=== PATIENT | male | born 1990 | race Caucasian/White ===

== ENCOUNTER 2022-07-31 02:47 | Inpatient (IN) | payer MEDICAID, OTHER ==
[2022-07-31] MEDS ORDERED: ZIPRASIDONE 20 MG VIAL IM STA (05:38)
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
[2022-07-31] MEDS ORDERED: diphenhydrAMINE 50 MG/ML 1 ML VIAL IVP STA (05:42)
[2022-07-31] MEDS ORDERED: LORazepam 2 MG/ML INJ IM STA ×2 (05:42→06:38)
[2022-07-31] MEDS ORDERED: HALOPERIDOL LACTATE 5 MG/ML 1 ML VIAL IM STA (05:43)
[2022-07-31] MEDS ORDERED: IBUPROFEN 600 MG TAB PO PRN (06:19)
[2022-07-31] MEDS ORDERED: ACETAMINOPHEN TAB 325 MG TAB PO PRN (06:19)
[2022-07-31] MEDS ORDERED: LORazepam 1 MG TAB PO PRN (06:19)
[2022-07-31] MEDS ORDERED: MAG HYDROX/AL HYDROX/SIMETH 30 ML CUP PO PRN (06:19)
[2022-07-31] MEDS ORDERED: LORazepam 2 MG/ML INJ IM PRN (06:19)
[2022-07-31] MEDS ORDERED: MAGNESIUM HYDROXIDE 2,400 MG/30 ML CUP PO PRN (06:19)
[2022-07-31] MEDS ORDERED: traZODone HCL 50 MG TAB PO PRN (06:19)
[2022-07-31] MEDS ORDERED: diphenhydrAMINE 25 MG CAP PO PRN (06:19)
[2022-07-31] MEDS ORDERED: diphenhydrAMINE 50 MG/ML 1 ML VIAL IM PRN (06:25)
[2022-07-31] MEDS ORDERED: chlorproMAZINE 25 MG TAB PO PRN (06:26)
[2022-07-31] MEDS ORDERED: chlorproMAZINE 25 MG/ML 2 ML AMP IM PRN (06:26)
[2022-07-31] MEDS ORDERED: NICOTINE 21MG/24HR PATCH TRANSDERM STA (06:39)
[2022-07-31 06:50] LABS: Appearance,Urine Clear (Clear); Bacteria,Urine Rare /hpf; Bilirubin,Urine Negative (Negative); Blood,Urine Negative (Negative); Color,Urine Yellow; Glucose,Urine (UA) Negative (Negative); Hyaline Casts,Urine 13 /lpf (0-2); Ketones,Urine 2+ (Negative); Leukocyte Esterase,Urine Negative (Negative); Mucus,Urine Many /hpf; Nitrite,Urine Negative (Negative); PH, Urine 5.5 (5.0-8.0); Protein,Urine 1+ (Negative); RBC,Urine 1 /hpf (0-5); Specific Gravity,Urine 1.032 (1.001-1.035); Urobilinogen,Urine <2.0 mg/dL (<2.0); WBC,Urine 1 /hpf (0-5)
[2022-07-31 06:58] LABS: Amphetamine Screen,Urine Detected (NotDetected); Barbiturate Screen,Urine Not Detected (NotDetected); Benzodiazepines Screen,Urine Not Detected (NotDetected); Cocaine Screen,Urine Not Detected (NotDetected); Methadone Screen, Urine Not Detected (NotDetected); Opiate Screen,Urine Not Detected (NotDetected); Oxycodone Screen, Urine Not Detected (NotDetected); Phencyclidine Screen,Urine Not Detected (NotDetected); Tricyclic Antidepressant,Urine Not Detected (NotDetected); Urn Cannabinoid Scrn Detected (NotDetected)
[2022-07-31] MEDS: NICOTINE 14MG/24HR PATCH TRANSDERM SCH (19:07)
[2022-08-01 06:10] LABS: Basophils % (A) 1 %; Eosinophils # (A) 0.2 k/uL (0-0.7); Eosinophils % (A) 3 %; HCT 44.2 % (39.0-53.0); HGB 14.9 gm/dL (13.0-17.5); Lymphocytes # (A) 2.2 k/uL (1.0-4.8); Lymphocytes % (A) 32 %; MCH 31.6 pg (25.0-35.0); MCHC 33.8 g/dL (31.0-37.0); MCV 93.8 fL (80.0-100.0); Mean Platelet Volume 7.5; Monocytes # (A) 0.6 k/uL (0-1.0); Monocytes % (A) 9 %; Neutrophils # (A) 3.6 k/uL (1.3-7.7); Neutrophils % (A) 52 %; Platelet Count 277 k/uL (150-450); RBC 4.71 m/uL (4.30-5.90); RDW 12.6 % (11.5-15.5); WBC 6.9 k/uL (3.8-10.6)
[2022-08-01 06:32] LABS: AST 44 U/L (17-59); African American GFR (CKD) >90 (>60 ml/min/1.73 sqM); Albumin 4.2 g/dL (3.5-5.0); Blood Urea Nitrogen 23 mg/dL (9-20); Calcium 9.4 mg/dL (8.4-10.2); Carbon Dioxide 29 mmol/L (22-30); Chloride 105 mmol/L (98-107); Glucose 85 mg/dL (74-99); Non-African American GFR(CKD) >90 (>60 ml/min/1.73 sqM); Total Bilirubin 0.7 mg/dL (0.2-1.3); Total Protein 7.1 g/dL (6.3-8.2)
[2022-08-01 06:36] LABS: ALT 36 U/L (4-49); Alkaline Phosphatase 66 U/L (38-126); Anion Gap 6 mmol/L; Potassium 4.4 mmol/L (3.5-5.1); Sodium 140 mmol/L (137-145)
[2022-08-01] MEDS: NICOTINE 14MG/24HR PATCH TRANSDERM SCH (11:33)
[2022-08-01] MEDS ORDERED: LORazepam 2 MG/ML INJ IM PRN (12:26)
[2022-08-01] MEDS ORDERED: ALBUTEROL HFA INHALER INHALATION PRN (12:42)
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
[2022-08-01 13:29] LABS: Chol/HDL Ratio 6.13 Ratio; LDL Cholesterol,Calculated 139.9 mg/dL (0.0-131.0)
[2022-08-01] MEDS: PARoxetine 20 MG TAB PO SCH (18:40)
[2022-08-02] MEDS: ZIPRASIDONE 20 MG CAP PO SCH ×3 (00:27→21:27)
[2022-08-02] MEDS: MONTELUKAST 10 MG TAB PO SCH ×2 (00:27→21:27)
[2022-08-02 05:07] VITALS: RESP 18
[2022-08-02] MEDS: SYMBICORT 80-4.5 MCG INHALER INHALATION SCH ×3 (08:17→22:50)
[2022-08-02] MEDS: PARoxetine 20 MG TAB PO SCH (09:41)
--- NOTE | 2022-08-02 10:50 | P.PN ---
Progress Note - Text Progress Note Date: 08/02/22 Interval history: Patient was seen lying in his bed this morning and was directable and agreeable to speak with selling underwriter. Patient was awoken by selling underwriter. He appears to be mildly more logical today and more appropriate during interaction. He states that he only went to 1 group yesterday, has been out for meals. States that he has not spoken with his family since coming into the hospital however was encouraged to do so today. Claims that he was up for breakfast this morning. He appears to b e more clear in his thought process. He is denying any anxiety, denying any paranoia or any depression at this time. States that he slept fairly last night. Continues to be somewhat isolative. At this time patient denies any suicidal or homicidal ideations intent or plan. Denies any Auditory or visual hallucinations. Patient denies any side effects from the medications and has been compliant with meds. Mental status exam: General Appearance: Patient appears to have dyed hair, be stated age is alert, directable, and cooperative. Less lethargic today. Behavior: No agitated behavior. Patient is calm and directable continues to be concrete Speech: Patient's speech is fluent and nonpressured. Monotone Mood/Affect: Mood is improving mildly, affect is congruent and constricted. Suicidality/Homicidality: Patient denies having any suicidal or homicidal ideation intent or plan. Perceptions: Patient denies any auditory or visual hallucinations. Though content/process: There is no evidence of any delusional thought content and thought process is linear and goal-directed. [place]. Memory and concentration: AOX3, grossly intact for the purposes of this session Judgment and insight: Poor, improving mildly Assessment/Plan: Continue with current diagnosis. Patient continues to meet criteria for inpatient psychiatric admission for symptom stabilization and safety.Patient will be maintained on current psychotropic medication regimen. ordered EKG once again to check qtc interval. Monitor for medication compliance and for any psychotropic medication side effects. Will continue to monitor ongoing response to treatment. Encouraged participation in milieu. encocuraged patient to call and contact his family
[2022-08-02] MEDS: NICOTINE 14MG/24HR PATCH TRANSDERM SCH (13:16)
[2022-08-02] MEDS: NICOTINE GUM (POLACRILEX) 2 MG GUM BUCCAL PRN (22:11)
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
[2022-08-03] MEDS: SYMBICORT 80-4.5 MCG INHALER INHALATION SCH ×2 (09:11→19:44)
[2022-08-03] MEDS: PARoxetine 20 MG TAB PO SCH (09:12)
[2022-08-03] MEDS: NICOTINE 14MG/24HR PATCH TRANSDERM SCH (09:12)
[2022-08-03] MEDS: ZIPRASIDONE 20 MG CAP PO SCH ×2 (09:12→19:44)
--- NOTE | 2022-08-03 11:42 | P.PN ---
Progress Note - Text Progress Note Date: 08/03/22 Interval History: Patient was seen resting in bed and was directable and agreeable to speak with typewriter mechanic in his room. Currently, the patient is not endorsing any suicidal or homicidal ideation, intention, and/or plan. He is currently alert and oriented in all spheres. He reports that he remembers having "almost like a very very bad dream would cause me to come to the hospital." He does acknowledge that he was using marijuana at the time. He is currently not endorsing any auditory or visual hallucinations. He is not endorsing any overt paranoid or delusional thought content. He has been adherent with his medications and is not reporting any significant side effects. He reports no issues regarding his sleep. However, staff note that his appetite has been poor. The patient maintains that he did eat last night however does admits not eating any breakfast this morning. He reports that he will try to get up to eat lunch later. He reports no acute medical issues and concerns of this provider. Mental Status Exam: General Appearance: Patient appears to be stated age is alert, directable, and cooperative. Multiple tattoos. Dyed hair. Behavior: Patient is calmly lying down in bed without any agitated behavior. Speech: Patient's speech is fluent and nonpressured. Mood/Affect: Mood is improving mildly, affect is congruent and constricted. Suicidality/Homicidality: Patient denies having any suicidal or homicidal ideation, intention, and/or plan. Perceptions: Patient denies any visual hallucinations and denies any auditory hallucinations Though content/process: There is no evidence of any delusional thought content and thought process is linear and goal-directed. 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 Patient has signed adult voluntary form and medication consent and was placed in patient's chart. -Medications: Geodon 20 mg twice a day with meals for psychosis Paxil 20 mg daily for depression/anxiety -When necessary Ativan and Thorazine for agitation/aggression. -NRT - nicotine patch -SW on board for discharge planning. Encouraged the patient to participate in milieu.
[2022-08-03] MEDS: NICOTINE GUM (POLACRILEX) 2 MG GUM BUCCAL PRN ×2 (14:26→18:11)
[2022-08-03] MEDS: clonazePAM 0.5 MG TAB PO PRN ×2 (16:03→19:44)
[2022-08-03] MEDS ORDERED: ALBUTEROL NEBULIZED (CONC) 5 MG, SODIUM CHLORIDE 0.9% NEBULIZ 3 ML INHALATION PRN ×2 (16:16)
[2022-08-03] MEDS: hydrOXYzine pamoate 25 MG CAP PO PRN (18:11)
[2022-08-03] MEDS: MONTELUKAST 10 MG TAB PO SCH (19:44)
[2022-08-04] MEDS: hydrOXYzine pamoate 25 MG CAP PO PRN ×2 (03:43→13:29)
[2022-08-04 07:15] VITALS: BP 124/90; PULSE 85; TEMP 98.2
[2022-08-04] MEDS: SYMBICORT 80-4.5 MCG INHALER INHALATION SCH (08:16)
[2022-08-04] MEDS: PARoxetine 20 MG TAB PO SCH (08:17)
[2022-08-04] MEDS: NICOTINE 14MG/24HR PATCH TRANSDERM SCH (08:17)
[2022-08-04] MEDS: ZIPRASIDONE 20 MG CAP PO SCH (08:17)
[2022-08-04] MEDS: clonazePAM 0.5 MG TAB PO PRN (10:16)
[2022-08-04] MEDS: NICOTINE GUM (POLACRILEX) 2 MG GUM BUCCAL PRN ×2 (10:16→13:29)
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
== END 2022-08-04 14:08 | disposition home or self-care (01) | DRG 775 ==
LOC: EC 02:47 → 3MHU 08-01 10:28
PROVIDERS: ADMIT Psychiatry & Neurology Psychiatry; ATTEND Psychiatry & Neurology Psychiatry
DX: F12.159 Cannabis abuse with psychotic disorder, unspecified (principal); F10.20 Alcohol dependence, uncomplicated; R45.851 Suicidal ideations; Z20.822 Contact with and (suspected) exposure to COVID-19; G47.00 Insomnia, unspecified; F17.210 Nicotine dependence, cigarettes, uncomplicated; F41.9 Anxiety disorder, unspecified; F32.A Depression, unspecified; E78.5 Hyperlipidemia, unspecified; Z79.899 Other long term (current) drug therapy; Z87.820 Personal history of traumatic brain injury; Z71.6 Tobacco abuse counseling; Z71.51 Drug abuse counseling and surveillance of drug abuser
CPT/HCPCS: 36415; 80053; 80061; 80306; 81001; 82075; 83036; 84439; 84443; 85025; 87635; 93005

== ENCOUNTER 2022-09-30 08:15 | Inpatient (IN) | payer MEDICAID, OTHER ==
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
[2022-09-30 10:18] LABS: Basophils % (A) 0 %; Eosinophils # (A) 0.2 k/uL (0-0.7); Eosinophils % (A) 1 %; HCT 44.1 % (39.0-53.0); HGB 14.9 gm/dL (13.0-17.5); Lymphocytes # (A) 1.1 k/uL (1.0-4.8); Lymphocytes % (A) 9 %; MCH 31.3 pg (25.0-35.0); MCHC 33.9 g/dL (31.0-37.0); MCV 92.2 fL (80.0-100.0); Mean Platelet Volume 7.4; Monocytes # (A) 1.1 k/uL (0-1.0); Monocytes % (A) 10 %; Neutrophils # (A) 8.9 k/uL (1.3-7.7); Neutrophils % (A) 76 %; Platelet Count 326 k/uL (150-450); RBC 4.78 m/uL (4.30-5.90); RDW 13.6 % (11.5-15.5); WBC 11.7 k/uL (3.8-10.6)
[2022-09-30 10:27] LABS: ALT 34 U/L (4-49); AST 25 U/L (17-59); African American GFR (CKD) >90 (>60 ml/min/1.73 sqM); Alkaline Phosphatase 80 U/L (38-126); Anion Gap 13 mmol/L; Blood Urea Nitrogen 19 mg/dL (9-20); Calcium 10.1 mg/dL (8.4-10.2); Carbon Dioxide 22 mmol/L (22-30); Chloride 103 mmol/L (98-107); Glucose 116 mg/dL (74-99); Non-African American GFR(CKD) >90 (>60 ml/min/1.73 sqM); Potassium 4.1 mmol/L (3.5-5.1); Sodium 138 mmol/L (137-145); Total Protein 8.3 g/dL (6.3-8.2)
--- NOTE | 2022-09-30 11:05 | CT ---
EXAMINATION TYPE: CT brain wo con DATE OF EXAM: 09/30/2022 COMPARISON: none HISTORY: headache CT DLP: 1128.[address] of the brain was performed. The ventricles, basal cisterns and sulci overlying the cerebral convexities demonstrate a normal appe arance. There is no evidence for intracranial hemorrhage or sulcal effacement. No mass effects are seen. Osseous calvarium is intact. If symptoms persist consider MRI as clinically warranted. IMPRESSION: 1. No acute intracranial process is seen at this time.
[2022-09-30] MEDS ORDERED: MAG HYDROX/AL HYDROX/SIMETH 30 ML CUP PO PRN (15:25)
[2022-09-30] MEDS ORDERED: MAGNESIUM HYDROXIDE 2,400 MG/30 ML CUP PO PRN (15:25)
[2022-09-30] MEDS ORDERED: ALBUTEROL NEBULIZED 2.5 MG/3 ML INHALATION PRN (15:26)
[2022-09-30] MEDS ORDERED: OLANZapine 10 MG VIAL IM PRN (15:28)
[2022-09-30] MEDS ORDERED: hydrOXYzine HCL 50 MG/ML 1 ML VIAL IM PRN (15:28)
[2022-09-30] MEDS: NICOTINE 14MG/24HR PATCH TRANSDERM SCH (16:13)
[2022-09-30] MEDS: OLANZapine 5 MG TAB PO PRN (16:24)
[2022-09-30] MEDS: DULoxetine HCL 20 MG CAPSULE.DR PO SCH ×2 (22:21→22:38)
[2022-09-30] MEDS: ZIPRASIDONE 60 MG CAP PO SCH ×2 (22:21→22:38)
[2022-09-30] MEDS: SYMBICORT 80-4.5 MCG INHALER INHALATION SCH (22:21)
[2022-10-01] MEDS ORDERED: PARoxetine 20 MG TAB PO SCH (09:00)
[2022-10-01] MEDS ORDERED: NICOTINE 14MG/24HR PATCH TRANSDERM SCH (09:00)
[2022-10-01] MEDS: ZIPRASIDONE 60 MG CAP PO SCH (10:02)
[2022-10-01] MEDS: MELOXICAM 7.5 MG TAB PO SCH (10:02)
[2022-10-01] MEDS: DULoxetine HCL 20 MG CAPSULE.DR PO SCH ×2 (10:02→21:07)
[2022-10-01] MEDS: NICOTINE 14MG/24HR PATCH TRANSDERM SCH (10:03)
[2022-10-01] MEDS: SYMBICORT 80-4.5 MCG INHALER INHALATION SCH ×2 (10:05→21:07)
[2022-10-01] MEDS: NON FORMULARY DRUG (Dextroamphetamine/Amphetamine [Adderall] 20 MG Tablet) PO SCH (10:06)
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
[2022-10-01 16:18] VITALS: BMI 26.7
[2022-10-01] MEDS: PALIPERIDONE 3 MG TAB.ER.24 PO SCH (21:07)
--- NOTE | 2022-10-02 05:08 | P.PN ---
Progress Note - Text Progress Note Date: 10/02/22 patient is psychotic and was unable to evaluate at this time
[2022-10-02] MEDS: SYMBICORT 80-4.5 MCG INHALER INHALATION SCH ×2 (08:07→21:06)
[2022-10-02] MEDS: NICOTINE 14MG/24HR PATCH TRANSDERM SCH ×2 (08:10→17:27)
[2022-10-02] MEDS: NON FORMULARY DRUG (Dextroamphetamine/Amphetamine [Adderall] 20 MG Tablet) PO SCH (08:11)
[2022-10-02] MEDS: MELOXICAM 7.5 MG TAB PO SCH (08:11)
[2022-10-02] MEDS: PALIPERIDONE 3 MG TAB.ER.24 PO SCH (08:13)
[2022-10-02] MEDS: DULoxetine HCL 20 MG CAPSULE.DR PO SCH (08:15)
[2022-10-02 08:55] LABS: Basophils % (A) 0 %; Eosinophils # (A) 0.4 k/uL (0-0.7); Eosinophils % (A) 4 %; HCT 45.9 % (39.0-53.0); HGB 15.6 gm/dL (13.0-17.5); Lymphocytes # (A) 2.4 k/uL (1.0-4.8); Lymphocytes % (A) 24 %; MCH 31.5 pg (25.0-35.0); MCHC 33.9 g/dL (31.0-37.0); MCV 93.1 fL (80.0-100.0); Mean Platelet Volume 7.1; Monocytes % (A) 10 %; Neutrophils # (A) 5.9 k/uL (1.3-7.7); Neutrophils % (A) 59 %; Platelet Count 316 k/uL (150-450); RBC 4.93 m/uL (4.30-5.90); RDW 13.1 % (11.5-15.5)
[2022-10-02] MEDS ORDERED: PARoxetine 10 MG TAB PO SCH (09:00)
[2022-10-02 09:59] LABS: ALT 29 U/L (4-49); AST 25 U/L (17-59); African American GFR (CKD) >90 (>60 ml/min/1.73 sqM); Albumin 4.7 g/dL (3.5-5.0); Alkaline Phosphatase 89 U/L (38-126); Anion Gap 12 mmol/L; Blood Urea Nitrogen 26 mg/dL (9-20); Calcium 9.8 mg/dL (8.4-10.2); Carbon Dioxide 26 mmol/L (22-30); Chloride 101 mmol/L (98-107); Glucose 97 mg/dL (74-99); Non-African American GFR(CKD) >90 (>60 ml/min/1.73 sqM); Sodium 139 mmol/L (137-145); Total Bilirubin 0.9 mg/dL (0.2-1.3); Total Protein 8.1 g/dL (6.3-8.2)
--- NOTE | 2022-10-02 10:44 | P.PN ---
Progress Note - Text Progress Note Date: 10/02/22 Interval History: Patient was seen laying in bed this morning and was directable and agreeable to speak with narrative writer in the office. Patient was fairly concrete and constricted. He states that he is doing "okay" and denied any overnight complaints. He states that he had difficulty initiating sleep. We spoke about the medication adjustments which is okay with. States that he has not spoken with his father since coming onto the unit. He is agreeable to continue with treatment. He states that his mood and anxiety are improving mildly. He was fairly logical and improvement in thought process. Continues to have poor hygiene and grooming. At this time patient denies any suicidal or homical ideations, intent or plan. Patient denies any auditory, visual hallucinations. Patient denies any side effects from the medications and has been compliant with meds. Mental Status Exam: General Appearance: Patient appears to have dyed hair, laying in bed, lethargic, stated age is , somewhat directable, and attempts to cooperate]. Patient appears to have poor hygiene and grooming. Behavior: Patient is seated without any agitated behavior. attempts to cooperate Speech: Patient's speech is fluent and concrete, improving mildly Mood/Affect: Patient reports their mood is "a little better", affect is congruent and constricted. Improving Suicidality/Homicidality: Patient denies having any homicidal ideation intent or plan. Denies any suicidal ideations intent or plan Perceptions: Patient denies any visual hallucinations and denies any auditory hallucinations Though content/process: There is no evidence of any delusional thought content and thought process is linear and goal-directed. concrete. Memory and concentration: AOX3, mildly confused, improving mildly Judgment and insight:limited, poor IMPRESSIONS: cannabis induced psychosis hx of TBI hx of ADHD hx of depression and anxiety cannabis use disorder nicotine dependence PLAN: -Patient is admitted under voluntary status to MHU for stabilization of psychiatric symptoms and safety. Patient has signed adult voluntary form and medication consent and is placed in patient's chart. -Medications : change invega 6 mg qhs for psychosis/mood stabilization. increase cymbalta 30 mg bid for mood/anxiety, decrease/titrating off paxil over the weekend. continue lower dose of adderall for adhd. trazodone 100 mg qhs prn for insomnia -zyprexa and vistaril PRN for agitation/aggression -NRT - nicotine patch -SW on board for discharge planning. Encourage patient to participate in groups to work on coping skills. likely discharge early next week. patient will ask to see if father can come to visit this weekend and will touch base next week.
[2022-10-02] MEDS: PALIPERIDONE 6 MG TAB.ER.24 PO SCH (21:06)
[2022-10-02] MEDS: DULoxetine HCL 30 MG CAPSULE.DR PO SCH (21:06)
[2022-10-03] MEDS: NICOTINE 14MG/24HR PATCH TRANSDERM SCH (08:27)
[2022-10-03] MEDS: DULoxetine HCL 30 MG CAPSULE.DR PO SCH ×2 (08:28→20:22)
[2022-10-03] MEDS: MELOXICAM 7.5 MG TAB PO SCH (08:28)
[2022-10-03] MEDS: ALBUTEROL HFA INHALER INHALATION PRN ×3 (08:28→16:25)
[2022-10-03] MEDS ORDERED: PARoxetine 20 MG TAB PO ONE (09:00)
[2022-10-03] MEDS: SYMBICORT 80-4.5 MCG INHALER INHALATION SCH ×2 (09:12→20:21)
[2022-10-03] MEDS: NON FORMULARY DRUG (Dextroamphetamine/Amphetamine [Adderall] 20 MG Tablet) PO SCH (09:12)
[2022-10-03] MEDS: hydrOXYzine pamoate 25 MG CAP PO PRN ×2 (12:12→20:23)
--- NOTE | 2022-10-03 14:53 | P.PN ---
Subjective Progress Note Date: 10/03/22 Principal diagnosis: IMPRESSIONS: cannabis induced psychosis hx of TBI hx of ADHD hx of depression and anxiety cannabis use disorder nicotine dependence Patient Name: Gualberto Garrido Date of : 88 Patient Status: Inpatient Attending Provider: Craig Londono Date: 10/03/22 Progress note by Johnson Noland M.D. Subjective data: The patient was seen in the hallway since patient had a roommate who was laying on the bed Patient was cooperative and walked outside in the hallway Patient denies that he is experiencing any auditory or visual hallucinations at this time Patient reports that he has found out the [facility] is ALLERGIC to marijuana and that he was using it too much He says that he ended up becoming psychotic and was experiencing auditory hallucinations He also states that he also has a history of traumatic brain injury and is on disability since last year He says that he lives with his family and that he used to do some factory work in the past He states that his current medications as an outpatient include paroxetine Adderall and Klonopin Mental Status Exam: General Appearance: Patient appears to have dyed hair, directable, and attempts to cooperate]. Patient appears to have poor hygiene and grooming. Behavior: Patient is without any agitated behavior. attempts to cooperate Speech: Patient's speech is fluent and concrete, improving mildly Mood/Affect: Patient reports their mood is "a little better", affect is congruent and constricted. Improving Suicidality/Homicidality: Patient denies having any homicidal ideation intent or plan. Denies any suicidal ideations intent or plan Perceptions: Patient denies any visual hallucinations and denies any auditory hallucinations Though content/process: There is no evidence of any delusional thought content and thought process is linear and goal-directed. concrete. Memory and concentration: AOX3, mildly confused, improving mildly Judgment and insight:limited, poor IMPRESSIONS: cannabis induced psychosis hx of TBI hx of ADHD hx of depression and anxiety cannabis use disorder nicotine dependence PLAN: -Patient is admitted under voluntary status to MHU for stabilization of psychiatric symptoms and safety. Patient has signed adult voluntary form and medication consent and is placed in patient's chart. -Medications : invega 6 mg qhs for psychosis/mood stabilization. cymbalta 30 mg bid for mood/anxiety, decrease/titrating off paxil over the weekend. continue lower dose of adderall for adhd. trazodone 100 mg qhs prn for insomnia -zyprexa and vistaril PRN for agitation/aggression -NRT - nicotine patch -SW on board for discharge planning. Encourage patient to participate in groups to work on coping skills. likely discharge early next week. patient will ask to see if father can come to visit this weekend and will touch base next week. Objective - Vital Signs Vital signs: Vital Signs Temp 97.4 F L 10/03/22 07:16 Pulse 102 H 10/03/22 07:16 Resp 17 10/03/22 07:16 BP 107/65 10/03/22 07:16 Pulse Ox 95 10/03/22 07:16 FiO2 - Labs CBC & Chem 7: 10/02/22 08:01 10/02/22 08:01
[2022-10-03] MEDS: NICOTINE GUM (POLACRILEX) 2 MG GUM BUCCAL PRN (15:44)
[2022-10-03] MEDS: ACETAMINOPHEN TAB 325 MG TAB PO PRN (16:25)
[2022-10-03] MEDS: PALIPERIDONE 6 MG TAB.ER.24 PO SCH (20:22)
[2022-10-03] MEDS: traZODone HCL 100 MG TAB PO PRN (20:25)
[2022-10-04] MEDS: OLANZapine 5 MG TAB PO PRN (01:30)
[2022-10-04] MEDS: ACETAMINOPHEN TAB 325 MG TAB PO PRN ×3 (01:30→20:21)
[2022-10-04] MEDS: hydrOXYzine pamoate 25 MG CAP PO PRN ×2 (07:10→15:23)
[2022-10-04] MEDS: DULoxetine HCL 30 MG CAPSULE.DR PO SCH ×2 (08:14→20:22)
[2022-10-04] MEDS: MELOXICAM 7.5 MG TAB PO SCH (08:14)
[2022-10-04] MEDS: SYMBICORT 80-4.5 MCG INHALER INHALATION SCH ×2 (08:14→20:22)
[2022-10-04] MEDS: NICOTINE 14MG/24HR PATCH TRANSDERM SCH (08:14)
[2022-10-04] MEDS: NICOTINE GUM (POLACRILEX) 2 MG GUM BUCCAL PRN ×2 (08:15→16:49)
[2022-10-04] MEDS: NON FORMULARY DRUG (Dextroamphetamine/Amphetamine [Adderall] 20 MG Tablet) PO SCH (08:15)
[2022-10-04] MEDS ORDERED: PARoxetine 10 MG TAB PO ONE (09:00)
[2022-10-04 09:23] LABS: Appearance,Urine Clear (Clear); Bilirubin,Urine Negative (Negative); Blood,Urine Negative (Negative); Color,Urine Yellow; Glucose,Urine (UA) Negative (Negative); Ketones,Urine Trace (Negative); Leukocyte Esterase,Urine Negative (Negative); Nitrite,Urine Negative (Negative); Protein,Urine Negative (Negative); Specific Gravity,Urine 1.013 (1.001-1.035); Urobilinogen,Urine <2.0 mg/dL (<2.0)
--- NOTE | 2022-10-04 10:44 | P.PN ---
Subjective Progress Note Date: 10/04/22 Principal diagnosis: IMPRESSIONS: cannabis induced psychosis hx of TBI hx of ADHD hx of depression and anxiety cannabis use disorder nicotine dependence Patient Name: Gualberto Garrido Date of : 88 Patient Status: Inpatient Attending Provider: Craig Londono Date: 10/03/22 Progress note by Johnson Noland M.D. Subjective data: The patient states that he is doing better and is feeling better He states that he slept well He denies that he is having any suicidal or homicidal thoughts He says that he has learned his lesson and plans to stay away from cannabis He also admits that he is hopeful that his memory and concentration will improve with time Mental Status Exam: General Appearance: Patient appears to have dyed hair, directable, and attempts to cooperate]. Patient appears to have poor hygiene and grooming. Behavior: Patient is without any agitated behavior. attempts to cooperate Speech: Patient's speech is fluent and concrete, improving mildly Mood/Affect: Patient reports their mood is "a little better", affect is congruent and constricted. Improving Suicidality/Homicidality: Patient denies having any homicidal ideation intent or plan. Denies any suicidal ideations intent or plan Perceptions: Patient denies any visual hallucinations and denies any auditory hallucinations Though content/process: There is no evidence of any delusional thought content and thought process is linear and goal-directed. concrete. Memory and concentration: AOX3, mildly confused, improving mildly Judgment and insight:limited, poor IMPRESSIONS: cannabis induced psychosis hx of TBI hx of ADHD hx of depression and anxiety cannabis use disorder nicotine dependence PLAN: -Patient is admitted under voluntary status to [facility] for stabilization of psychiatric symptoms and safety. Patient has signed adult voluntary form and medication consent and is placed in patient's chart. -Medications : invega 6 mg qhs for psychosis/mood stabilization. cymbalta 30 mg bid for mood/anxiety, decrease/titrating off paxil over the weekend. continue lower dose of adderall for adhd. trazodone 100 mg qhs prn for insomnia -zyprexa and vistaril PRN for agitation/aggression -NRT - nicotine patch -SW on board for discharge planning. Encourage patient to participate in groups to work on coping skills. likely discharge early next week. patient will ask to see if father can come to visit this weekend and will touch base next week. Tentative discharge tomorrow Johnson Noland M.D. Objective - Vital Signs Vital signs: Vital Signs Temp 97.7 F 10/04/22 07:04 Pulse 94 10/04/22 07:04 Resp 14 10/04/22 07:04 BP 114/73 10/04/22 07:04 Pulse Ox 95 10/03/22 07:16 FiO2 - Labs CBC & Chem 7: 10/02/22 08:01 10/02/22 08:01 Labs: Abnormal Lab Results - Last 24 Hours (Table) 10/04/22 Range/Units 09:00 Urine Ketones Trace H (Negative)
[2022-10-04] MEDS: ALBUTEROL HFA INHALER INHALATION PRN (12:47)
[2022-10-04 17:44] LABS: Urine Alcohol Negative (Negative); Urine Barbiturate Negative (Negative); Urine Cocaine Negative (Negative); Urine Methadone Negative (Negative); Urine Opiates Negative (Negative); Urine Phencyclidine Negative (Negative)
[2022-10-04] MEDS: traZODone HCL 100 MG TAB PO PRN (20:22)
[2022-10-04] MEDS: PALIPERIDONE 6 MG TAB.ER.24 PO SCH (20:22)
[2022-10-05] MEDS: ACETAMINOPHEN TAB 325 MG TAB PO PRN ×4 (01:18→20:10)
[2022-10-05] MEDS: hydrOXYzine pamoate 25 MG CAP PO PRN ×3 (01:18→20:18)
[2022-10-05] MEDS: DULoxetine HCL 30 MG CAPSULE.DR PO SCH ×2 (08:23→20:09)
[2022-10-05] MEDS: SYMBICORT 80-4.5 MCG INHALER INHALATION SCH ×2 (08:23→20:09)
[2022-10-05] MEDS: MELOXICAM 7.5 MG TAB PO SCH (08:24)
[2022-10-05] MEDS: NICOTINE 14MG/24HR PATCH TRANSDERM SCH (08:24)
[2022-10-05] MEDS: NICOTINE GUM (POLACRILEX) 2 MG GUM BUCCAL PRN (08:26)
[2022-10-05] MEDS: ALBUTEROL HFA INHALER INHALATION PRN (09:58)
[2022-10-05] MEDS: NON FORMULARY DRUG (Dextroamphetamine/Amphetamine [Adderall] 20 MG Tablet) PO SCH (10:01)
--- NOTE | 2022-10-05 10:45 | P.PN ---
Progress Note - Text Progress Note Date: 10/05/22 Interval History: Patient was seen laying in bed this morning and was directable and agreeable to speak with feature writer in the office. Patient appears to be more directable today. He was fairly focused on discharge. Continues to be somewhat superficial but his insight and judgment. Claims that when he was having difficulties initiating and maintaining sleep. He had to take Zyprexa and also Vistaril over the weekend to help him with sleep. He claims that she has "[place] care of" and states that he wants to be released at this time and was fairly demanding. He states that he will sign then AMA if he does not get released today. He was minimizing his other symptoms claims that he feels "great" and denies any depression or anxiety at this time. She is having improving hygiene and grooming. At this time patient denies any suicidal or homical ideations, intent or plan. Patient denies any auditory, visual hallucinations. Patient denies any side effects from the medications and has been compliant with meds. Mental Status Exam: General Appearance: Patient appears to have dyed hair, sitting in chair, stated age , somewhat directable, and attempts to cooperate]. Patient appears to have improving hygiene and grooming. Behavior: Patient is seated without any agitated behavior. attempts to cooperate. Somewhat demanding Speech: Patient's speech is fluent and concrete, improving mildly Mood/Affect: Patient reports their mood is "good", affect is congruent and constricted. Improving Suicidality/Homicidality: Patient denies having any homicidal ideation intent or plan. Denies any suicidal ideations intent or plan Perceptions: Patient denies any visual hallucinations and denies any auditory hallucinations Though content/process: There is no evidence of any delusional thought content and thought process is linear and goal-directed. concrete. focused on discharge today Memory and concentration: AOX3, improving mildly, concentration fair. Judgment and insight: Chronically limited, improving mildly IMPRESSIONS: cannabis induced psychosis hx of TBI hx of ADHD hx of depression and anxiety cannabis use disorder nicotine dependence PLAN: -Patient is admitted under voluntary status to [facility] for stabilization of psychiatric symptoms and safety. Patient has signed adult voluntary form and medication consent and is placed in patient's chart. -Medications : invega 6 mg qhs for psychosis/mood stabilization. cymbalta 30 mg bid for mood/anxiety, continue home dose of adderall for adhd. increase trazodone 200 mg qhs for insomnia -zyprexa and vistaril PRN for agitation/aggression -NRT - nicotine patch -SW on board for discharge planning. Encourage patient to participate in groups to work on coping skills. likely discharge tomorrow if patient is improved, will be going back home. Sw to help arrange for this
[2022-10-05] MEDS: PALIPERIDONE 6 MG TAB.ER.24 PO SCH (20:09)
[2022-10-05] MEDS ORDERED: traZODone HCL 100 MG TAB PO SCH (21:00)
[2022-10-06 06:57] VITALS: BP 108/55; PULSE 81; RESP 19; TEMP 97.9
[2022-10-06] MEDS: MELOXICAM 7.5 MG TAB PO SCH (08:02)
[2022-10-06] MEDS: DULoxetine HCL 30 MG CAPSULE.DR PO SCH (08:02)
[2022-10-06] MEDS: hydrOXYzine pamoate 25 MG CAP PO PRN (08:03)
[2022-10-06] MEDS: ACETAMINOPHEN TAB 325 MG TAB PO PRN (08:03)
[2022-10-06] MEDS: SYMBICORT 80-4.5 MCG INHALER INHALATION SCH (08:04)
[2022-10-06] MEDS: NON FORMULARY DRUG (Dextroamphetamine/Amphetamine [Adderall] 20 MG Tablet) PO SCH (08:04)
[2022-10-06] MEDS: NICOTINE 14MG/24HR PATCH TRANSDERM SCH (08:05)
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
== END 2022-10-06 10:55 | disposition home or self-care (01) | DRG 776 ==
LOC: EC 08:15 → 3MHU 15:23
PROVIDERS: ADMIT Psychiatry & Neurology Psychiatry; ATTEND Psychiatry & Neurology Psychiatry
DX: F12.151 Cannabis abuse with psychotic disorder with hallucinations (principal); F90.9 Attention-deficit hyperactivity disorder, unspecified type; F32.A Depression, unspecified; F41.9 Anxiety disorder, unspecified; G47.00 Insomnia, unspecified; Z96.651 Presence of right artificial knee joint; Z87.820 Personal history of traumatic brain injury; Z79.899 Other long term (current) drug therapy; Z71.51 Drug abuse counseling and surveillance of drug abuser; Z71.41 Alcohol abuse counseling and surveillance of alcoholic
CPT/HCPCS: 36415; 70450; 80053; 80306; 81003; 82075; 83036; 84443; 85025; 87635; 99285